=== PATIENT | male | born 1975 | race Two or more races ===

== ENCOUNTER → 2025-09-22 | Emergency (ER) | payer OTHER ==
[~2025-09-22] VITALS: Ht 175.3 cm; Wt 95.3 kg
[~2025-09-22] MED LIST: 0.9 % SODIUM CHLORIDE 1,000 ML IV SCH; CIPRO500 MG PO; CIPROFLOXACIN IN 5 % DEXTROSE 400 MG/200 ML PIGGYBAG IV ONE; METRONIDAZOLE/SODIUM CHLORIDE 500 MG/100 ML PIGGYBACK IV ONE; METRONIDAZOLE500 MG PO; PEPCID AC20 MG PO
[2025-09-22 09:42] LABS: BASO % 0.8 % (0.1-1.2); EOS # 0.20 (0.04-0.54); EOS % 3.2 % (0.7-7.0); LYMPH # 1.97 (1.18-3.74); LYMPH % 31.1 % (19.3-53.1); MEAN PLATELET VOLUME 10.50 fl (9.4-12.4); MONO # 0.51 (0.24-0.82); MONO % 8.0 % (4.7-12.5); NEUT # 3.59 (1.56-6.13); NEUT % 56.6 % (34.0-71.1); RED CELL DISTRIBUTION WIDTH 13.8 % (11.6-14.4)
[2025-09-22 09:46] LABS: ERYTHROCYTE SEDIMENTATION RATE 30 mm/hr (0-15)
[2025-09-22 10:09] LABS: INR 1.02
[2025-09-22 10:29] LABS: ALT/SGPT 70.0 U/L (12-78); AST/SGOT 25.0 U/L (15-37); BILIRUBIN TOTAL 0.94 mg/dL (0.3-1.2); BUN CREA RATIO 16.0 (7.0-25.0); CREATININE SERUM 0.73 mg/dL (0.70-1.30); GFR 113.73; GLOBULINA 3.4 G/DL (2.4-3.5); GLUCOSE FASTING 79.0 mg/dL (65-100); OSMOLALITY SERUM 280.0 MOSM/KG (275-295)
== END | disposition home or self-care (01) ==
LOC: ER 07:53
PROVIDERS: Student in an Organized Health Care Education/Training Program
DX: K62.89 Other specified diseases of anus and rectum (principal); K57.32 Diverticulitis of large intestine without perforation or abscess without bleeding; K64.8 Other hemorrhoids; N39.0 Urinary tract infection, site not specified